=== PATIENT | female | born 1995 | race Caucasian/White ===

== ENCOUNTER 2024-11-28 11:49 | Emergency (ER) | payer OTHER, SELFPAY ==
[2024-11-28 12:00] VITALS: BP 99/51; PULSE 90; RESP 16; TEMP 37; O2SAT 99; BMI 28.3
--- NOTE | 2024-11-28 14:12 | ED_ITS ---
<Statement entered by Stoney Lockett DO - 11/30/24 10:49> Dr. Lockett: I was immediately available in the department for consultation. I did not actually see the patient. HPI - Back Pain/Injury General Chief Complaint: Back Pain/Injury Stated Complaint: Lower back pain Time Seen by Provider: 11/28/24 14:01 Source: patient History of Present Illness HPI Narrative: Ms. 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 Not currently taking any prescriptions or following with any doctors. Patient is here with her mother who contributes to the history. Reports that s he was on a 7 hour bus ride about 3 days ago and the next morning she had severe pain in her right low back/buttocks area. Reports that this pain is making it difficult for her to walk and it occasionally goes down her right leg. She took Tylenol this morning for pain which did not help. Her mother has been having to help take care of her due to difficulty standing and walking because of the pa in. She denies bowel or bladder dysfunction but states that because she is not able to get to the bathroom quickly she urinated on herself when trying to provide ER urine sample. Denies bloody stool, fevers, chills, history of IV drug use, flu-like symptoms. She does also have some intertrigo on the pannus of her abdomen that is not improving with oral fluconazole. 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 Related Data Previous Rx's Medication Instructions Recorded oxycodone-acetaminophen 5 mg-325 1 tab PO Q6H PRN pain #12 tabs 11/28/24 mg tablet prednisone 20 mg tablet 40 mg (2 x 20 mg) PO DAILY 5 days 11/28/24 #10 tabs Allergies Allergy/AdvReac Type Severity Reaction Status Date / Time bupropion [From Wellbutrin] Allergy Anaphylaxis Verified 11/28/24 12:00 ceftriaxone Allergy Hives Verified 11/28/24 12:00 Penicillins Allergy Hives Verified 11/28/24 12:00 vancomycin Allergy Anaphylaxis Verified 11/28/24 12:00 Review of Systems Review of Systems ROS Unobtainable: All systems reviewed & are unremarkable except as noted in HPI and below Patient History Social History Smoking Status: Current every day smoker Smoking Status: Current every day smoker tobacco type: cigarettes Exam Narrative Exam Narrative: GENERAL: 29 year old patient appears stated age. Well-developed patient, in no acute distress, sitting upright in stretcher. HEAD: Atraumatic. Normocephalic. NECK: Trachea midline. Cervical ROM intact. CARDIOVASCULAR: Regular rate and rhythm. RESPIRATORY: ?Nonlabored respirations. ?Speaking in clear, full sentences. ?Clear to auscultation. Breath sounds equal bilaterally. No wheezes, rales, or rhonchi. ? GASTROINTESTINAL: Abdomen soft, non-tender, nondistended. Patient gave verbal consent for rectal exam, Normal rectal tone. EXTREMITIES: No edema or joint tenderness. BACK: Tenderness to palpation of right SI joint. There is no midline lumbar tenderness. Pain is exacerbated when going from the sitting to standing position. Positive right straight leg raise. NEURO: AOx3. ?Clear speech. ?Moves all 4 extremities appropriately. SKIN: Healing blister/erythematous lesions throughout trunk. Well demarcated Erythema in fold of pannus on abdomen. Initial Vital Signs Initial Vital Signs: Vital Signs Temperature 98.6 F 11/28/24 12:00 Pulse Rate 90 11/28/24 12:00 Respiratory Rate 16 11/28/24 12:00 Blood Pressure 99/51 L 11/28/24 12:00 Pulse Oximetry 99 11/28/24 12:00 Oxygen Delivery Method Room Air 11/28/24 12:00 Course Orders Ordered: ED Orders 11/28/24 12:09 Consult to AUT[employer]BI[employer]CH[employer]IC SUPERVISOR - Program Specialist Stat 11/28/24 14:33 CT lumbar spine wo con Stat 11/28/24 15:30 Test Urine Stat Urinalysis and Microscopic Stat Urine Culture Stat Discontinued Medications Hydromorphone HCl (Hydromorphone 0.5 Mg Inj) 0.5 mg IV NOW ONE Stop: 11/28/24 16:19 Last Admin: 11/28/24 16:32 Dose: Not Given Documented By: RB Hydromorphone HCl (Hydromorphone 1 Mg Inj) 0.5 mg IM NOW ONE Stop: 11/28/24 16:26 Last Admin: 11/28/24 16:31 Dose: 0.5 mg Documented By: RB Lidocaine (Lidocaine 5% Patch) 1 each TOP NOW ONE Stop: 11/28/24 14:34 Last Admin: 11/28/24 14:42 Dose: 1 each Documented By: LUISANA Ondansetron HCl (Ondansetron 4 Mg/2 Ml Inj) 4 mg IV NOW PRN PRN Reason: Nausea And Vomiting Ondansetron HCl (Ondansetron 4 Mg Odt) 4 mg SL NOW PRN PRN Reason: Nausea And Vomiting Ondansetron HCl (Ondansetron 4 Mg Odt) 4 mg SL NOW ONE Stop: 11/28/24 14:34 Last Admin: 11/28/24 14:41 Dose: 4 mg Documented By: LUISANA Oxycodone/Acetaminophen (Oxycodone/Acetaminophen 5/325 Tablet) 1 tab PO NOW ONE Stop: 11/28/24 14:34 Last Admin: 11/28/24 14:41 Dose: 1 tab Documented By: LUISANA Prednisone (Prednisone 20 Mg Tablet) 40 mg PO NOW ONE Stop: 11/28/24 14:34 Last Admin: 11/28/24 14:41 Dose: 40 mg Documented By: LUISANA Vital Signs Vital signs: Vital Signs - 8 hr 11/28/24 12:00 11/28/24 15:27 11/28/24 17:40 Temperature 98.6 F 99 F 98.1 F Pulse Rate 90 63 78 Respiratory Rate 16 20 18 Blood Pressure 99/51 L 102/59 L 96/62 Pulse Oximetry 99 95 99 Oxygen Delivery Method Room Air Room Air MDM - Back Pain/Injury Medical Records Attestation: I reviewed the patient's medical records. Medical records narrative: Reviewed printed records from September 2024 hospitalization for Girish Matthias syndrome. Lab Data Labs: Lab Results 11/28/24 Range/Units 15:30 Urine Color Yellow Urine Appearance Clear Urine pH 6.5 (4.5-8.0) Ur Specific Bostic 1.015 (1.000-1.035) Urine Protein Negative (Negative) Urine Glucose (UA) Negative (Negative) g/dL Urine Ketones Negative (NEGATIVE) Urine Occult Blood Negative (Negative) Urine Nitrate Negative (Negative) Urine Bilirubin Negative (NEGATIVE) Urine Urobilinogen 0.2 (0.2) E.U./dL Ur Leukocyte Esterase 1+ H (NEGATIVE) Urine RBC 0-1/hpf (0-5/HPF) Urine WBC 1-5/hpf (0-5/HPF) Ur Squamous Epith Cells 10-30 /hpf H (0-5/HPF) Urine Bacteria Few (2-10) H (None) Ur Culture Indicated? Specimen cultured Vol Urine Centrifuged 10ml (spun) Urine Test Negative (Negative) Imaging Data CT Lumbar: Radiologist's Impression: PROCEDURE: CT LUMBAR SPINE WO CON INDICATIONS: severe R low back pain / SI x 3 days w/ radiculopathy TECHNIQUE: Noncontrast 3 mm thick sections acquired from the T12 level to the sacrum. Sagittal and coronal reformats were constructed. For radiation dose reduction, the following was used: automated exposure control. COMPARISON: None. FINDINGS: Image quality: Excellent. Bones: There is normal bony alignment. No acute vertebral body compression fractures. No suspicious lytic or blastic bony lesions. No pars defects. Marked bilateral sacroiliitis. T12-L1: Normal. L1-L2: Normal. L2-L3: Normal. L3-L4: Very mild broad-based disc bulge. L4-L5: Very mild broad-based disc bulge. L5-S1: Normal. Soft tissues: No retroperitoneal masses or hematomas. Visualized aorta is normal in caliber. IUD within the endometrium. IMPRESSION: Marked bilateral sacroiliitis, which can be seen in the setting of other medical conditions, such as inflammatory bowel disease. Very mild degenerative disc disease at L3-4 and L4-5. 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 Differential diagnosis includes but isn't limited to right lumbar radiculopathy, sacroiliitis, spinal stenosis, herniated disc, etc. On exam patient is in no acute distress, nontoxic appearing however she does have discomfort with position changes in the right SI joint region. No direct trauma to the back, no fevers, no history of IV drug use. She has not having any bowel or bladder dysfunction however did report accidentally urinating on herself when attempting to provide ER urine sample. Postvoid residual 10 cc and normal rectal tone. We will proceed with UA, CT lumbar region treat with oxy codone/acetaminophen, Lidoderm, prednisone, Zofran as patient is not a candidate for NSAIDs given her history of Crohn's disease and ulcers. Preg neg. UA with squamous epithelial cells, 1+ leuk esterase, few bacteria, not consistent with UTI, we will hold off on antibiotics until culture results. CT lumbar spine reveals marked bilateral sacroiliitis which can be seen in the setting of other medical conditions as his inflammatory bowel disease, very mild degenerative disc disease at L3-L4 and L4-L5. Imaging results consistent with the patient's right SI joint pain. Patient is not having any abdominal pain, black or blood stools, or other symptoms that she relates to her Crohn's disease. Initial oral pain medication regimen did not palpation, she states Dilaudid is the only thing that helped, dose of IM Dilaudid was ordered and she did have improvement of her pain, ambulating independently but still with SI discomfort. She was prescribed a short course of hydrocodone-acetaminophen for severe pain and prednisone to help with right radicular symptoms. I also recommended warm compress, rest, stretching, TENs unit. Advised she follow up with the primary care doctor and ortho spine. We discussed very strict ED return precautions. I also recommended clotrimazole cream b.i.d. x4 weeks for her pannus intertrigo. She verbalized understanding of all information is agreeable with the plan, she is stable for discharge home. Discharge Plan Departure Patient Disposition: Home Clinical Impression: Bilateral sacroiliitis, Acute right lumbar radiculopathy Instructions: DI for Lumbar Radiculopathy Activity Restrictions/Additional Instructions: Thank you for coming to the emergency department. Today you were evaluated for right low back pain radiating to the right leg. A CT scan of your lumbar spine revealed sacroiliitis which is inflammation of the SI joint. This medication is usually treated with anti-inflammatory pain medications however because of your history of Crohn's disease and ulcers we will avoid these and use opiate pain medication instead however it is very important to understand that these medications are addicting, sedating and will cause constipation. I also would like you to complete the full course of prescribed steroids. It is very important to follow up with a primary care doctor to help manage your various chronic conditions. Please also use Tylenol in addition to the prescribed medications. You may use warm compress/heat therapy and you may purchase [id number] TENs unit. You may follow up with Dr. Michael Anton with [facility] in [place] as he has an orthopedic spine surgeon. Please follow up with your primary care doctor within the next 2-3 days for ER follow-up. (If you do not have a PCP you can call [phone]. ?to schedule an appointment with an [facility] Primary Care Provider) IF YOU DEVELOP ANY NEW OR WORSENING SYMPTOMS, RETURN TO THE ER! Please read the attached instructions, they highlight more specific treatments and interventions for you at home. Thank you for letting me participate in your care, Charis Jaime PA-C Prescriptions: New prednisone 20 mg tablet 40 mg PO DAILY 5 Days Qty: 10 0RF oxycodone-acetaminophen 5-325 mg tablet 1 tab PO Q6H PRN (Reason: pain) Qty: 12 0RF Stand Alone Forms: Patient Portal/API/Survey
--- NOTE | 2024-11-28 14:33 | DI.CT.S_ITS ---
PROCEDURE: CT LUMBAR SPINE WO CON INDICATIONS: severe R low back pain / SI x 3 days w/ radiculopathy TECHNIQUE: Noncontrast 3 mm thick sections acquired from the T12 level to the sacrum. Sagittal and coronal reformats were constructed. For radiation dose reduction, the following was used: automated exposure control. COMPARISON: None. FINDINGS: Image quality: Excellent. Bones: There is normal bony alignment. No acute vertebral body compression fractures. No suspicious lytic or blastic bony lesions. No pars defects. Marked bilateral sacroiliitis. T12-L1: Normal. L1-L2: Normal. L2-L3: Normal. L3-L4: Very mild broad-based disc bulge. L4-L5: Very mild broad-based disc bulge. L5-S1: Normal. Soft tissues: No retroperitoneal masses or hematomas. Visualized aorta is normal in caliber. IUD within the endometrium. IMPRESSION: Marked bilateral sacroiliitis, which can be seen in the setting of other medical conditions, such as inflammatory bowel disease. Very mild degenerative disc disease at L3-4 and L4-5. Dictated by: Garrett Pena M.D. on 11/28/2024 at 15:21 Approved by: Garrett Pena M.D. on 11/28/2024 at 15:23
[2024-11-28] MEDS: OXYCODONE/ACETAMINOPHEN 5/325 TABLET 1 TAB PO (14:41)
[2024-11-28] MEDS: ONDANSETRON 4 MG ODT SL (14:41)
[2024-11-28] MEDS: predniSONE 20 MG TABLET 40 MG PO (14:41)
[2024-11-28] MEDS: LIDOCAINE 5% PATCH 1 EACH TOP (14:42)
--- NOTE | 2024-11-28 14:52 | PC.NURSE ---
This RN asked provider if they were comfortable with patient going for imaging prior to test. Naima Jaime states That's up to the patient if she has any concern for possible than we need to wait but if she doesn't that she can self state that she can go. Patient denies any possibility that she is . SANJU Tee witnessed both conversations.
[2024-11-28 15:27] VITALS: BP 102/59; PULSE 63; RESP 20; TEMP 37.2; O2SAT 95
[2024-11-28 15:50] LABS: Appearance Urine UA CLEAR; Bilirubin Urine UA NEGATIVE (NEGATIVE); Color Urine UA YELLOW; Glucose Urine UA NEGATIVE (Negative); Ketones Urine UA NEGATIVE (NEGATIVE); Leukocyte Esterase Urine UA 1+ (NEGATIVE); Nitrite Urine UA NEGATIVE (Negative); Occult Blood Urine UA NEGATIVE (Negative); Protein Urine UA NEGATIVE (Negative); Specific Gravity Urine UA 1.015 (1.000-1.035); Urobilinogen Urine UA 0.2 E.U./dL (0.2)
[2024-11-28 15:51] LABS: Pregnancy Test Urine Negative (Negative)
[2024-11-28 15:57] LABS: pH Urine UA 6.5 (4.5-8.0)
[2024-11-28 15:59] LABS: Bacteria Urine Few (2-10); Culture Indicated Urine Specimen Cultured; RBC Urine 0-1/HPF (0-5/HPF); Squamous Epithelial Cell Urine 10-30 /HPF (0-5/HPF); Urine Volume 10mL (spun); WBC Urine 1-5/HPF (0-5/HPF)
[2024-11-28] MEDS: HYDROMORPHONE 1 MG INJ 0.5 MG IM (16:31)
[2024-11-28 17:40] VITALS: BP 96/62; PULSE 78; RESP 18; TEMP 36.7; O2SAT 99
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
--- NOTE | 2024-11-29 11:56 | CM.SWNOTE ---
ED REVIEW ENGINEER Follow Up Note REVIEW ENGINEER calls [facility] [address] [place] [address] primary care clinic and schedules ED f/u appt for patient with JOHN Barrera for 12/04/24 at 10:15 am check in. REVIEW ENGINEER calls patient regarding this and patient requests email with this information. REVIEW ENGINEER emails this to patient at [email or web address] Patient to f/u with new PCP appt next week. Lina Velásquez, AIR BAG BUILDER
== END 2024-11-28 17:44 | disposition home or self-care (01) ==
PROVIDERS: Emergency Provider Physician Assistant
DX: M46.1 Sacroiliitis, not elsewhere classified (principal); M54.16 Radiculopathy, lumbar region; F17.210 Nicotine dependence, cigarettes, uncomplicated
CPT/HCPCS: 51798; 72131; 81001; 81025; 87086; 96372; 99284; J1171